=== PATIENT | female | born 1965 | race Caucasian/White ===

== ENCOUNTER 2017-04-24 12:31 | Day surgery (SDC) | payer OTHER ==
[~2017-04-24] VITALS: Ht 152.4 cm; Wt 61.2 kg
[2017-04-24 13:50] VITALS: Ht 152.4 cm; Wt 61.2 kg
[2017-04-24] MEDS ORDERED: NO HOME MEDS (13:57)
[2017-04-24 14:20] VITALS: BP 114/57; PULSE 59; RESP 17
[2017-04-24] MEDS ORDERED: MIDAZOLAM 1 MG/ML 2 ML INJ ONE ×2 (15:03)
[2017-04-24] MEDS ORDERED: FENTAnyl 50 MCG/ML VIAL ONE (15:03)
--- NOTE | 2017-04-28 12:50 | GILP ---
Missael MORGAN PROCEDURE DATE OF PROCEDURE: 04/24/2017 SURGEON: Rita Sandy MD PROCEDURE PERFORMED: Colonoscopy. PREOPERATIVE DIAGNOSIS: Screening colonoscopy. POSTOPERATIVE DIAGNOSES: 1. Colonoscopy all the way to the cecum. 2. Internal hemorrhoids. 3. No colon neoplasm was identified. INDICATION: The patient is a 51-year-old female patient who as scheduled for screening colonoscopy. The procedure and possible complications were well-explained to the patient, and the patient understood and consented to the procedure. DESCRIPTION OF PROCEDURE: Under the influence of fentanyl and Versed the colonoscope was carefully introduced into the rectum and under direct vision it was advanced all the way to the cecum. Findings: The patient had internal hemorrhoids, no colon neoplasm was identified. She tolerated the procedure very well and there was no complication from the procedure. At the end of the procedure she was awake, with stable vital signs and she was discharged to the care of her family. IMPRESSION: 1. Colonoscopy all the way to the cecum. 2. Internal hemorrhoids. 3. No colon neoplasm was identified. PLAN: Next screening colonoscopy will be in 10 years. Dictated By: MD SUSAN Hinojosa/funetes/niyah /Document#: [id number] Conf#:[id number] DID#: [id number]
== END 2017-04-24 18:04 | disposition home or self-care (01) ==
LOC: GIL 12:31
PROVIDERS: ATTEND Internal Medicine Gastroenterology
DX: Z12.11 Encounter for screening for malignant neoplasm of colon (principal); K64.8 Other hemorrhoids
CPT/HCPCS: 45378; J2250; J3010; Z7610